=== PATIENT | female | born 1950 | race Caucasian/White ===

== ENCOUNTER 2022-08-05 09:57 | Outpatient (CLI) | payer MEDICARE, BC, SELFPAY ==
[2022-08-05 10:49] LABS: Abs Immature Grans 0.02 10^3/uL (0.0-0.06); Absolute Eosinophil Count 0.08 10^3/uL (0.0-0.7); Basophils % 0.2; Eosinophils % 0.3; HGB 12.6 g/dL (11.2-15.7); Immature Grans % 0.1; MCH 35.7 pg (27.0-33.0); MCHC 34.1 % (32.0-36.0); MCV 105 fL (80-95); Monocytes % 0.7; Neutrophils % 7.7; Platelet Count 206 10^3/uL (130-400); RBC 3.53 10^6/uL (3.93-5.22); RDW 12.8 % (11.7-14.6); RDW-SD 49.1 fL
[2022-08-05 10:50] LABS: Absolute Basophil Count 0.05 10^3/uL (0.0-0.2); Absolute Lymphocyte Count 23.59 10^3/uL (1.2-3.4); Absolute Monocyte Count 0.18 10^3/uL (0.1-0.8)
[2022-08-05 11:00] LABS: Diff Comment Agrees w/ Instrument; RBC Morphology Normal
[2022-08-05 11:06] LABS: WBC 25.92 10^3/uL (4.4-10.8)
[2022-08-05 11:28] LABS: ALT 21 U/L (14-59); AST 15 U/L (15-37); Albumin 3.8 g/dL (3.4-5.0); Alkaline Phosphatase 74 U/L (46-116); Anion Gap 6.3 mmol/L (3-11); BUN 11 mg/dL (7-18); Bilirubin, Total 0.6 mg/dL (0.2-1.0); CO2 30.7 mmol/L (21.0-32.0); CREATININE 0.6 mg/dL (0.55-1.02); Calcium 9.2 mg/dL (8.5-10.1); Chloride 97 mmol/L (98-107); Estimated GFR 94.72 (mL/min/1.73m2); Glucose 95 mg/dL (74-106); LDH 158 U/L (81-234); Potassium 4.2 mmol/L (3.5-5.1); Sodium 134 mmol/L (136-145); Total Protein 6.5 g/dL (6.4-8.2)
[2022-08-06 14:09] LABS: Albumin 70.7 % (55.8-66.1); Albumin g/dL 4.3 g/dL (3.6-5.2); Total Protein 6.1 g/dL (6.3-8.2)
== END 2022-08-05 09:58 | disposition home or self-care (01) ==
PROVIDERS: Visit Provider Internal Medicine Hematology & Oncology
DX: C91.10 Chronic lymphocytic leukemia of B-cell type not having achieved remission (principal)
CPT/HCPCS: 36415; 80053; 83615; 84165; 85025